=== PATIENT | male | born 1965 | race Two or more races ===

== ENCOUNTER 2023-09-22 01:08 | Emergency (ER) | payer OTHER ==
[~2023-09-22] VITALS: Ht 172.7 cm; Wt 113.4 kg
[2023-09-22] MEDS ORDERED: METOPROLOL TARTRATE 50 MG TABLET ONE (01:27)
[2023-09-22] MEDS: METOPROLOL TARTRATE 25 MG TABLET PO ONE (01:28)
[2023-09-22] MEDS ORDERED: METOPROLOL TARTRATE INJ 5 MG/5 ML AMPUL ONE (01:48)
[2023-09-22] MEDS: IV NS 0.9% 1,000 ML BAG IV ONE (01:51)
[2023-09-22] MEDS: METOPROLOL TARTRATE INJ 5 MG/5 ML AMPUL IVP ONE (01:57)
[2023-09-22 02:01] LABS: BASOPHILS # (AUTO) 0.3 K/uL (0.0-0.2); BASOPHILS % (AUTO) 3.3 % (0.0-2.0); EOSINOPHILS % (AUTO) 0.2 % (0.0-6.0); HEMATOCRIT 40 % (39-51); HEMOGLOBIN 13.3 g/dL (13.5-17.5); LYMPHOCYTES % (AUTO) 10.1 % (20.0-44.0); MEAN CORPUSCULAR HEMOGLOBIN 32 PG (26.0-33.0); MEAN CORPUSCULAR HGB CONC 33 g/dl (31.0-36.0); MEAN CORPUSCULAR VOLUME 95 fL (80-96); MONOCYTES # (AUTO) 0.6 K/uL (0.1-1.30); NEUTROPHILS # (AUTO) 8.3 K/uL (1.8-8.9); NEUTROPHILS % (AUTO) 80.4 % (43.0-81.0); PLATELET COUNT (AUTO) 405 K/uL (150-450); RED CELL DISTRIBUTION WIDTH 16.7 % (11.5-15.0); WHITE BLOOD COUNT (AUTO) 10.3 K/uL (4.3-11.0)
[2023-09-22 02:12] LABS: CALCIUM, SERUM 8.5 mg/dL (8.5-10.1); CARBON DIOXIDE 24 mmol/L (21-32); CHLORIDE 96 mmol/L (98-107); GLUCOSE 132 mg/dL (74-106); SODIUM SERUM 132 mmol/L (136-145); UREA NITROGEN, BLOOD 7 mg/dL (7-18)
[2023-09-22] MEDS ORDERED: POTASSIUM CHLORIDE 20 MEQ TAB.PRT.SR PO ONE (02:30)
[2023-09-22] MEDS ORDERED: Thiamine 100 MG/ML VIAL ONE (02:30)
[2023-09-22] MEDS: Thiamine 100 MG in IV D5W 50 ML IV SCH (02:33)
[2023-09-22] MEDS: POTASSIUM CHLORIDE 20 MEQ TAB.PRT.SR PO ONE (02:33)
[2023-09-22 04:42] VITALS: BP 142/88; TEMP 98; O2SAT 95
== END 2023-09-22 05:10 | disposition home or self-care (01) ==
LOC: ER 01:11
DX: R07.89 Other chest pain (principal); R03.0 Elevated blood-pressure reading, without diagnosis of hypertension; F41.9 Anxiety disorder, unspecified; F10.20 Alcohol dependence, uncomplicated; E87.6 Hypokalemia; Y90.0 Blood alcohol level of less than 20 mg/100 ml
CPT/HCPCS: 99285; 96365; 96375; 93005 ×2; 71045; 85025; 80048; 36415; 84484 ×2; 80320; J3490; J7060; J7030; J3411; G0480